=== PATIENT | female | born 1955 | race Caucasian/White ===

== ENCOUNTER 2019-11-29 05:43 | Observation (INO) | payer MEDICARE ==
[2019-11-29] MEDS ORDERED: MORPHINE SULFATE 4 MG/ML SYRINGE IV STA (06:21)
[2019-11-29] MEDS ORDERED: SODIUM CHLORIDE 0.9% 1,000 ML IV STA (06:21)
[2019-11-29 06:32] LABS: Basophils % (A) 0 %; Eosinophils # (A) 0.1 k/uL (0-0.7); Eosinophils % (A) 1 %; HCT 41.4 % (34.0-46.0); Lymphocytes % (A) 8 %; MCH 33.5 pg (25.0-35.0); MCHC 33.8 g/dL (31.0-37.0); MCV 99.1 fL (80.0-100.0); Mean Platelet Volume 8.4; Monocytes # (A) 0.7 k/uL (0-1.0); Monocytes % (A) 6 %; Neutrophils # (A) 11.6 k/uL (1.3-7.7); Neutrophils % (A) 86 %; Platelet Count 206 k/uL (150-450); RBC 4.18 m/uL (3.80-5.40); RDW 12.5 % (11.5-15.5); WBC 13.5 k/uL (3.8-10.6)
--- NOTE | 2019-11-29 06:43 | ED ---
General Adult HPI <Cassius Finch - Last Filed: 11/29/19 07:49> - General Source: patient, RN notes reviewed, old records reviewed Mode of arrival: ambulatory Limitations: no limitations <Johnny Covington - Last Filed: 11/29/19 07:54> - General Chief complaint: Abdominal Pain Stated complaint: back pain Time Seen by Provider: 11/29/19 06:01 - History of Present Illness Initial comments: 64-year-old female patient with no pertinent past well-nourished history presents to ED for evaluation of abdominal pain. Patient reports that this morning at approximately 11 AM. She began experiencing abdominal discomfort. This is mostly in her lower quadrant as well as periumbilical region. Patient reports that she has had some radiation to right posterior axillary line. Patient reports she has had a small amount of nausea without emesis. Denies any diarrhea. Denies any chest pain or shortness of breath. Denies any no change in urination. Denies any other complaints. Systemic: Pt denies fatigue, fever/chills, rash. Pt denies weakness, night sweats, weight loss. Neuro: Pt denies headache, visual disturbances, syncope or pre-syncope. HEENT: Pt denies ocular discharge or irritation, otalgia, rhinorrhea, pharyngitis or notable lymphadenopathy. Cardiopulmonary: Pt denies chest pain, SOB, heart palpitations, dyspnea on exertion. Abdominal/GI: Pt denies n/v/d. : Pt denies dysuria, burning w/ urination, frequency/urgency. Denies new onset urinary or bowel incontinence. MSK: Pt denies myalgia, loss of strength or function in extremities. Neuro: Pt denies new onset weakness, paresthesias. (Johnny Covington) - Related Data Allergies Allergy/AdvReac Type Severity Reaction Status Date / Time No Known Allergies Allergy Verified 11/29/19 05:52 Review of Systems ROS Other: All systems not noted in ROS Statement are negative. <Cassius Finch - Last Filed: 11/29/19 07:49> ROS Other: All systems not noted in ROS Statement are negative. <Johnny Covington - Last Filed: 11/29/19 07:54> ROS Statement: Those systems with pertinent positive or pertinent negative responses have been documented in the HPI. Past Medical History Past Medical History: No Reported History History of Any Multi-Drug Resistant Organisms: None Reported Past Surgical History: Orthopedic Surgery Additional Past Surgical History / Comment(s): Ovary removed Past Psychological History: No Psychological Hx Reported Smoking Status: Never smoker Past Alcohol Use History: Occasional Past Drug Use History: None Reported <Johnny Covington - Last Filed: 11/29/19 07:54> General Exam Limitations: no limitations <Johnny Covington - Last Filed: 11/29/19 07:54> - General Exam Comments Initial Comments: Constitutional: NAD, AOX3, Pt has pleasant affect. HEENT: NC/AT, trachea midline, neck supple, no lymphadenopathy. Posterior pharynx non erythematous, without exudates. External ears appear normal, without discharge. Mucous membranes moist. Eyes PERRLA, EOM intact. There is no scleral icterus. No pallor noted. Cardiopulmonary: RRR, no murmurs, rubs or gallops, no JVD noted. Lungs CTAB in anterior and posterior sanchez. No peripheral edema. Abdominal exam: Abdomen soft and non-distended. Abdomen has generalized moderate tenderness and right lower quadrant and left lower quadrant periumbilical region.. Bowel sounds active in LLQ. No hepatosplenomegaly. No ecchymosis. No CVA tenderness. Neuro: CN II-XII grossly intact. No nuchal rigidity. No raccon eyes, no núñez sign, no hemotympanum. No cervical spinal tenderness. MSK: No posterior calf tenderness bilaterally, homans sign negative bilaterally. Posterior tibialis and radial pulse +2 bilaterally. Sensation intact in upper and lower extremities. Full active ROM in upper and lower extremities, 5/5 s tregnth. (Johnny Covington) Course Vital Signs 11/29/19 11/29/19 05:48 06:51 Temperature 99.2 F 98.9 F Pulse Rate 83 77 Respiratory 18 18 Rate Blood Pressure 151/66 144/74 O2 Sat by Pulse 98 98 Oximetry Medical Decision Making - Lab Data Result diagrams: 11/29/19 06:15 11/29/19 06:15 <Cassius Finch - Last Filed: 11/29/19 07:49> - Lab Data Result diagrams: 11/29/19 06:15 11/29/19 06:15 - EKG Data -: EKG Interpreted by Me (and Dr. Finch ) <Johnny Covington - Last Filed: 11/29/19 07:54> - Medical Decision Making Patient reevaluated and reexamined by myself, Dr. Finch. I do agree with. Findings. This includes diagnostic interpretation and treatment plan. Patient is updated on results and plan. Case was discussed in detail with Dr. Shields, who will admit for or. Abdomen is soft with moderate right lower quadrant tenderness. Lab results and CT report reviewed. (Cassius Finch) 64-year-old female patient with no pertinent past well-nourished history presents to ED for evaluation of abdominal pain. Patient reports that this morning at approximately 11 AM. She began experiencing abdominal discomfort. This is mostly in her lower quadrant as well as periumbilical region. Patient reports that she has had some radiation to right posterior axillary line. Patient reports she has had a small amount of nausea without emesis. Denies any diarrhea. Denies any chest pain or shortness of breath. Denies any no change in urination. Denies any other complaints. Patient vital signs are stable, afebrile. Physical exam slight tenderness to abdomen right lower quadrant and left lower quadrant region. laboratory investigations reveal leukocytosis of 13.5.displayed nonspecific ST abnormality, does not appear ischemic. UA displayed +2 ketones, [address] abdomen and pelvis display evidence of acute appendicitis with fecalith present within the appendix. Also displayed mild cardiomegaly, mild hepatomegaly, probable cysts in both the liver and the kidneys. Degenerative changes in the spine. Patient initiated an Zosyn. Will be admitted for surgical evaluation. Case discussed with Dr. Finch. (Johnny Covington) - Lab Data Lab Results 11/29/19 11/29/19 11/29/19 Range/Units 06:15 06:15 06:15 WBC 13.5 H (3.8-10.6) k/uL RBC 4.18 (3.80-5.40) m/uL Hgb 14.0 (11.4-16.0) gm/dL Hct 41.4 (34.0-46.0) % MCV 99.1 (80.0-100.0) fL MCH 33.5 (25.0-35.0) pg MCHC 33.8 (31.0-37.0) g/dL RDW 12.5 (11.5-15.5) % Plt Count 206 (150-450) k/uL Neutrophils % 86 % Lymphocytes % 8 % Monocytes % 6 % Eosinophils % 1 % Basophils % 0 % Neutrophils # 11.6 H (1.3-7.7) k/uL Lymphocytes # 1.0 (1.0-4.8) k/uL Monocytes # 0.7 (0-1.0) k/uL Eosinophils # 0.1 (0-0.7) k/uL Basophils # 0.0 (0-0.2) k/uL Sodium 137 (137-145) mmol/L Potassium 3.9 (3.5-5.1) mmol/L Chloride 101 (98-107) mmol/L Carbon Dioxide 24 (22-30) mmol/L Anion Gap 12 mmol/L BUN 13 (7-17) mg/dL Creatinine 0.56 (0.52-1.04) mg/dL Est GFR (CKD-EPI)AfAm >90 (>60 ml/min/1.73 sqM) Est GFR (CKD-EPI)NonAf >90 (>60 ml/min/1.73 sqM) Glucose 125 H (74-99) mg/dL Plasma Lactic Acid Justyn 1.1 (0.7-2.0) mmol/L Calcium 9.6 (8.4-10.2) mg/dL Total Bilirubin 0.7 (0.2-1.3) mg/dL AST 20 (14-36) U/L ALT 15 (4-34) U/L Alkaline Phosphatase 49 (38-126) U/L Total Protein 7.5 (6.3-8.2) g/dL Albumin 4.6 (3.5-5.0) g/dL Lipase 71 (23-300) U/L Urine Color Urine Appearance (Clear) Urine pH (5.0-8.0) Ur Specific [place] (1.001-1.035) Urine Protein (Negative) Urine Glucose (UA) (Negative) Urine Ketones (Negative) Urine Blood (Negative) Urine Nitrite (Negative) Urine Bilirubin (Negative) Urine Urobilinogen (<2.0) mg/dL Ur Leukocyte Esterase (Negative) Urine RBC (0-5) /hpf Urine WBC (0-5) /hpf Urine Mucus (None) /hpf Urine Yeast (Budding) (None) /hpf 11/29/19 Range/Units 06:30 WBC (3.8-10.6) k/uL RBC (3.80-5.40) m/uL Hgb (11.4-16.0) gm/dL Hct (34.0-46.0) % MCV (80.0-100.0) fL MCH (25.0-35.0) pg MCHC (31.0-37.0) g/dL RDW (11.5-15.5) % Plt Count (150-450) k/uL Neutrophils % % Lymphocytes % % Monocytes % % Eosinophils % % Basophils % % Neutrophils # (1.3-7.7) k/uL Lymphocytes # (1.0-4.8) k/uL Monocytes # (0-1.0) k/uL Eosinophils # (0-0.7) k/uL Basophils # (0-0.2) k/uL Sodium (137-145) mmol/L Potassium (3.5-5.1) mmol/L Chloride (98-107) mmol/L Carbon Dioxide (22-30) mmol/L Anion Gap mmol/L BUN (7-17) mg/dL Creatinine (0.52-1.04) mg/dL Est GFR (CKD-EPI)AfAm (>60 ml/min/1.73 sqM) Est GFR (CKD-EPI)NonAf (>60 ml/min/1.73 sqM) Glucose (74-99) mg/dL Plasma Lactic Acid Justyn (0.7-2.0) mmol/L Calcium (8.4-10.2) mg/dL Total Bilirubin (0.2-1.3) mg/dL AST (14-36) U/L ALT (4-34) U/L Alkaline Phosphatase (38-126) U/L Total Protein (6.3-8.2) g/dL Albumin (3.5-5.0) g/dL Lipase (23-300) U/L Urine Color Yellow Urine Appearance Clear (Clear) Urine pH 5.5 (5.0-8.0) Ur Specific [place] 1.024 (1.001-1.035) Urine Protein 1+ H (Negative) Urine Glucose (UA) Negative (Negative) Urine Ketones 2+ H (Negative) Urine Blood Large H (Negative) Urine Nitrite Negative (Negative) Urine Bilirubin Negative (Negative) Urine Urobilinogen <2.0 (<2.0) mg/dL Ur Leukocyte Esterase Negative (Negative) Urine RBC 50 H (0-5) /hpf Urine WBC 2 (0-5) /hpf Urine Mucus Few H (None) /hpf Urine Yeast (Budding) Occasional H (None) /hpf - EKG Data EKG Comments: Ventricular rate 78, HI interval 140, QRS 72, QT/QTc 48/465. Normal sinus rhythm, nonspecific ST abnormality, no ST elevations. (Johnny Covington) Disposition <Cassius Finch - Last Filed: 11/29/19 07:49> Is patient prescribed a controlled substance at d/c from ED?: No <Johnny Covington - Last Filed: 11/29/19 07:54> Clinical Impression: Acute appendicitis Disposition: ADMITTED IP TO THIS HOSP Condition: Serious Referrals: Nonstaff,Physician [Primary Care Provider] - 1-2 days
[2019-11-29 06:46] LABS: ALT 15 U/L (4-34); AST 20 U/L (14-36); African American GFR (CKD) >90 (>60 ml/min/1.73 sqM); Albumin 4.6 g/dL (3.5-5.0); Alkaline Phosphatase 49 U/L (38-126); Anion Gap 12 mmol/L; Blood Urea Nitrogen 13 mg/dL (7-17); Calcium 9.6 mg/dL (8.4-10.2); Carbon Dioxide 24 mmol/L (22-30); Chloride 101 mmol/L (98-107); Glucose 125 mg/dL (74-99); Non-African American GFR(CKD) >90 (>60 ml/min/1.73 sqM); Potassium 3.9 mmol/L (3.5-5.1); Sodium 137 mmol/L (137-145); Total Bilirubin 0.7 mg/dL (0.2-1.3); Total Protein 7.5 g/dL (6.3-8.2)
[2019-11-29 06:48] LABS: Appearance,Urine Clear (Clear); Bilirubin,Urine Negative (Negative); Blood,Urine Large (Negative); Budding Yeast,Urine Occasional /hpf; Color,Urine Yellow; Glucose,Urine (UA) Negative (Negative); Ketones,Urine 2+ (Negative); Leukocyte Esterase,Urine Negative (Negative); Mucus,Urine Few /hpf; Nitrite,Urine Negative (Negative); PH, Urine 5.5 (5.0-8.0); Protein,Urine 1+ (Negative); RBC,Urine 50 /hpf (0-5); Specific Gravity,Urine 1.024 (1.001-1.035); Urobilinogen,Urine <2.0 mg/dL (<2.0); WBC,Urine 2 /hpf (0-5)
--- NOTE | 2019-11-29 07:36 | CT ---
EXAMINATION TYPE: CT abdomen pelvis w con DATE OF EXAM: 11/29/2019 REFERENCE: NONE HISTORY: RLQ abdominal pain, appendicitis suspected HISTORY: Back pain, RLQ abdominal pain, Appendicitis suspected CT DLP: 505.1 mGy Automated exposure control for dose reduction was used. TECHNIQUE: Helical acquisition through the abdomen and pelvis was obtained following the oral ingesti on of without Oral Contrast and following intravenous administration of 100 ml mL of Isovue 300. The data was reformatted in axial, coronal and sagittal projections. FINDINGS: Visualized portions of the lungs are clear. There is no pleural or pericardial fluid. The heart is mildly enlarged. Within the abdomen, the liver is mildly prominent measuring 19 cm. There are several low attenuating lesions within the liver which do not demonstrate enhancement on delayed images. These likely represe nt cysts. This could BE confirmed with ultrasound. The spleen and gallbladder are normal. Both adrenal glands are normal. The pancreas is unremarkable. There are small, simple appearing cysts in both kidneys. There is no significant retroperitoneal, iliac or inguinal adenopathy. The uterus is retroverted. There is follicular change in the right ovary. The left ovary is not clear ly visualized. The bladder is not distended. The colon is largely collapsed. There is inflammatory change adjacent to the cecum. There is a fecali th within the appendix. The appendix is markedly dilated measuring 13.5 mm. No definite free intraper itoneal air is seen. There is free fluid within the pelvis. Small bowel loops are of normal caliber. There is degenerative disc disease, facet arthropathy and hypertrophic spondylosis within the spine.. IMPRESSION: 1. EVIDENCE OF ACUTE APPENDICITIS WITH A FECALITH PRESENT WITHIN THE APPENDIX. 2. MILD CARDIOMEGALY. 3. MILD HEPATOMEGALY. 4. PROBABLE CYSTS IN BOTH THE LIVER AND KIDNEYS. THIS COULD BE CONFIRMED WITH ULTRASOUND. 5. DEGENERATIVE CHANGES WITHIN THE SPINE.
[2019-11-29] MEDS ORDERED: PIPERACILLIN-TAZOBACTAM 3.375 GM in SODIUM CHLORIDE 0.9% 100 ML IVPB STA (07:40)
[2019-11-29] MEDS ORDERED: MORPHINE SULFATE 4 MG/ML SYRINGE IV PRN (07:47)
[2019-11-29] MEDS ORDERED: NALOXONE 0.4 MG/ML 1 ML VIAL IV PRN (07:47)
[2019-11-29] MEDS ORDERED: HYDROmorphone 0.5 MG/0.5 ML SYRINGE IVP STA (07:50)
[2019-11-29] MEDS ORDERED: SODIUM CHLORIDE 0.9% 1,000 ML IV SCH (08:00)
[2019-11-29] MEDS: HEPARIN SODIUM,PORCINE 5,000 UNIT/ML 1 ML VIAL SQ SCH ×2 (11:08→12:14)
--- NOTE | 2019-11-29 12:47 | P.GSHP ---
History of Present Illness H&P Date: 11/29/19 CHIEF COMPLAINT: Right lower quadrant abdominal pain with appendicitis less than 1 day. HISTORY OF PRESENT ILLNESS: The patient is a previously healthy 64-year-old male who presents with less than 1 day history of periumbilical with right lower quadrant abdominal pain that started yesterday afternoon. She denies any previous episodes. She is active. She reports having multiple bowel movements. No blood in stools. No reports of prior abdominal pain. She states the intensity of the pain is moderate like gas pain. She presented with over 13,[address] abdomen and pelvis consistent with dilated appendix suspicious for appendicitis hence general surgery admission. Since admission, She reports abdominal pain is steady but worse with movement. PAST MEDICAL HISTORY: Denies PAST SURGICAL HISTORY: Denies CURRENT MEDICATIONS: Denies ALLERGIES: Codeine SOCIAL HISTORY: Non-tobacco user. FAMILY HISTORY: Denies Crohns disease and ulcerative colitis. REVIEW OF ORGAN SYSTEMS: CONSTITUTIONAL: Denies any fever or chills. HEENT: Denies any trouble with vision, hearing or nosebleeds. No difficulty swallowing. LYMPHATIC: The patient denies any lumps and bumps around the neck. ENDOCRINE: Denies any thyroid disorders. Denies any blood sugar glucose intolerance. RESPIRATORY: Denies shortness of breath including chronic cough. CARDIOVASCULAR: Denies history of chest pain with exertion. GASTROINTESTINAL: Denies regurgitation of bile at night as well as intermittent nausea. No blood in stools. Due for colonoscopy next year GENITOURINARY: Denies any blood in urine or increased urinary frequency. MUSCULOSKELETAL: Has current joint arthritis. NEUROLOGIC: Denies any numbness or tingling along the distal extremities. No seizure disorders or headaches. PSYCHIATRIC: Denies any depression or suicidal ideation. HEMATOLOGIC: Denies any abnormal bleeding or bruising. GENERAL MEDICAL CARE: The patient sees primary care physician regularly. PHYSICAL EXAMINATION: Vital signs: Reviewed GENERAL: Well developed and in no acute distress. Appears younger than stated age HEENT: No sclera icterus. Extraocular movements grossly intact. Moist buccal mucosa. Head is atraumatic, normocephalic. Hears conversational speech. No nasal drainage. NECK: Supple without lymphadenopathy. No JV distention. CHEST: Non-labored respirations and equal bilateral excursions. CARDIOVASCULAR: Regular rate and rhythm. Palpable 2+ radial pulses. ABDOMEN: Soft, tender at the right lower quadrant. No peritonitis. MUSCULOSKELETAL: No clubbing, cyanosis or edema. NEUROLOGIC: No focal or lateralizing signs. PSYCH: Appropriate affect. Alert and oriented to person, place and time. SKIN: Well perfused. Good skin turgor. LABS: WBC over 13,000 EKG: Reviewed and borderline STUDIES: CT of the abdomen and pelvis independently reviewed with dilated appendix without perforation or free fluid. This my personal interpretation ASSESSMENT: 1. Right lower quadrant pain. 2. Appendicitis. 3. Hypertensive heart disease PLAN: 1. I have discussed benefits and risks of robotic laparoscopic appendectomy. 2. Antibiotics, zosyn 3. DVT prophylaxis 4. GI prophylaxis 5. Patient in intermediate risk for perioperative complications with history of hypertension Past Medical History Past Medical History: No Reported History History of Any Multi-Drug Resistant Organisms: None Reported Past Surgical History: Orthopedic Surgery Additional Past Surgical History / Comment(s): Ovary removed Past Anesthesia/Blood Transfusion Reactions: No Reported Reaction Past Psychological History: No Psychological Hx Reported Smoking Status: Never smoker Past Alcohol Use History: Occasional Past Drug Use History: None Reported - Past Family History Mother Family Medical History: COPD, Rheumatoid Arthritis (RA) Medications and Allergies Home Medications Medication Instructions Recorded Confirmed Type Ascorbic Acid [Vitamin C] 500 mg PO DAILY 11/29/19 11/29/19 History Cholecalciferol [Vitamin D3 (25 2,000 unit PO DAILY 11/29/19 11/29/19 History Mcg = 1000 Iu)] Glucosam/Ryan-Msm1/C/Connor/Bosw 1 tab PO DAILY 11/29/19 11/29/19 History [Glucosamine-Chondroitin Tablet] [place]-3 Fatty Acids/Fish Oil [Fish 1 cap PO DAILY 11/29/19 11/29/19 History Oil 1,000 mg Softgel] Vitamin E 400 unit PO DAILY 11/29/19 11/29/19 History Allergies Allergy/AdvReac Type Severity Reaction Status Date / Time No Known Allergies Allergy Verified 11/29/19 09:15 Surgical - Exam Vital Signs Temp Pulse Resp BP Pulse Ox 99.2 F 83 18 151/66 98 11/29/19 05:48 11/29/19 05:48 11/29/19 05:48 11/29/19 05:48 11/29/19 05:48 Results - Labs 11/29/19 06:15 11/29/19 06:15 Abnormal Lab Results - Last 24 Hours (Table) 11/29/19 11/29/19 11/29/19 Range/Units 06:15 06:15 06:30 WBC 13.5 H (3.8-10.6) k/uL Neutrophils # 11.6 H (1.3-7.7) k/uL Glucose 125 H (74-99) mg/dL Urine Protein 1+ H (Negative) Urine Ketones 2+ H (Negative) Urine Blood Large H (Negative) Urine RBC 50 H (0-5) /hpf Urine Mucus Few H (None) /hpf Urine Yeast (Budding) Occasional H (None) /hpf Diabetes panel 11/29/19 Range/Units 06:15 Sodium 137 (137-145) mmol/L Potassium 3.9 (3.5-5.1) mmol/L Chloride 101 (98-107) mmol/L Carbon Dioxide 24 (22-30) mmol/L BUN 13 (7-17) mg/dL Creatinine 0.56 (0.52-1.04) mg/dL Glucose 125 H (74-99) mg/dL Calcium 9.6 (8.4-10.2) mg/dL AST 20 (14-36) U/L ALT 15 (4-34) U/L Alkaline Phosphatase 49 (38-126) U/L Total Protein 7.5 (6.3-8.2) g/dL Albumin 4.6 (3.5-5.0) g/dL Calcium panel 11/29/19 Range/Units 06:15 Calcium 9.6 (8.4-10.2) mg/dL Albumin 4.6 (3.5-5.0) g/dL Pituitary panel 11/29/19 Range/Units 06:15 Sodium 137 (137-145) mmol/L Potassium 3.9 (3.5-5.1) mmol/L Chloride 101 (98-107) mmol/L Carbon Dioxide 24 (22-30) mmol/L BUN 13 (7-17) mg/dL Creatinine 0.56 (0.52-1.04) mg/dL Glucose 125 H (74-99) mg/dL Calcium 9.6 (8.4-10.2) mg/dL Adrenal panel 11/29/19 Range/Units 06:15 Sodium 137 (137-145) mmol/L Potassium 3.9 (3.5-5.1) mmol/L Chloride 101 (98-107) mmol/L Carbon Dioxide 24 (22-30) mmol/L BUN 13 (7-17) mg/dL Creatinine 0.56 (0.52-1.04) mg/dL Glucose 125 H (74-99) mg/dL Calcium 9.6 (8.4-10.2) mg/dL Total Bilirubin 0.7 (0.2-1.3) mg/dL AST 20 (14-36) U/L ALT 15 (4-34) U/L Alkaline Phosphatase 49 (38-126) U/L Total Protein 7.5 (6.3-8.2) g/dL Albumin 4.6 (3.5-5.0) g/dL Assessment and Plan (1) Hypertensive cardiovascular disease Current Visit: Yes Status: Acute Code(s): I11.9 - HYPERTENSIVE HEART DISEASE WITHOUT HEART FAILURE SNOMED Code(s): 50836386 (2) Acute appendicitis Current Visit: Yes Status: Acute Code(s): K35.80 - UNSPECIFIED ACUTE APPENDICITIS SNOMED Code(s): 59237763 (3) Leukocytosis Current Visit: Yes Status: Acute Code(s): D72.829 - ELEVATED WHITE BLOOD CELL COUNT, UNSPECIFIED SNOMED Code(s): 390342955
[2019-11-29] MEDS ORDERED: LIDOCAINE 1% INJ 10MG/ML (20 ML MDV) ONE (15:10)
[2019-11-29] MEDS ORDERED: PHENYLEPHRINE-0.9% NACL SYG 1 MG/10 ML SYRINGE ONE (15:10)
[2019-11-29] MEDS ORDERED: SUCCINYLCHOLINE CHLORIDE 100 MG/5 ML SYR IV ONE (15:10)
[2019-11-29] MEDS ORDERED: PROPOFOL 10 MG/ML 20 ML VIAL IV ONE (15:10)
[2019-11-29] MEDS ORDERED: NEOSTIGMINE 1 MG/ML 10 ML VIAL ONE (15:10)
[2019-11-29] MEDS ORDERED: fentaNYL (PF) 50 MCG/ML 2 ML AMP ONE (15:10)
[2019-11-29] MEDS ORDERED: ROCURONIUM BROMIDE 10 MG/ML 5 ML VIAL IV ONE (15:10)
[2019-11-29] MEDS ORDERED: IV FLUID CONTINUATION 600 ML IV ONE (15:10)
[2019-11-29] MEDS ORDERED: MIDAZOLAM 2 MG/2 ML VIAL ONE (15:10)
[2019-11-29] MEDS ORDERED: GLYCOPYRROLATE 0.2 MG/ML 2 ML VIAL ONE (15:10)
[2019-11-29] MEDS ORDERED: BUPIVACAIN-EPI 0.25%-1:200,000 30 ML VIAL SQ ONE ×2 (15:41→15:44)
[2019-11-29] MEDS ORDERED: PIPERACILLIN-TAZOBACTAM 3.375 GM in SODIUM CHLORIDE 0.9% 100 ML IVPB SCH (16:00)
[2019-11-29] MEDS ORDERED: LACTATED RINGERS 1,000 ML IV ONE (16:16)
--- NOTE | 2019-11-29 16:29 | P.OP ---
Date of Procedure: 11/29/19 Description of Procedure: SURGEON: RADHA ZAVALA MD Preoperative Diagnosis: 1. Right lower quadrant abdominal pain 2. Acute appendicitis. 3. Leukocytosis 4. Hypertensive heart disease Postoperative Diagnosis: 1. Right lower quadrant abdominal pain 2. Acute appendicitis. 3. Leukocytosis 4. Hypertensive heart disease 5. Abdominal ascites Procedure(s) Performed: 1. Robotic-assisted daVinci Xi laparoscopic appendectomy Anesthesia: GETA, local Surgeon: Radha Zavala Estimated Blood Loss (ml): 5 Pathology: other (appendix) Condition: stable Disposition: floor Operative Findings: 1. Acute appendicitis without rupture with periappendicitis. 2. Terminal ileum unremarkable 3. Cecum unremarkable 4. No bilateral inguinal hernias 5. Ascites within the pelvis aspirated INDICATIONS: The patient is a 64-year-old female who presents with acute appendicitis. Benefits and risks, including infection, open surgery, and bleeding for additional surgery was discussed at length. Informed consent was obtained. All questions of the patient and family were answered. DESCRIPTION: The patient was transferred to the operating room and placed in supine position. The patient had previously voided. The abdomen was then prepped and draped in standard sterile fashion as Ioban was placed along the abdomen to minimize any contamination of skin floor. After a timeout protocol was performed, attention was then brought to the left upper quadrant whereby a 0 degree 5 mm laparoscopic trocar entry was performed. The abdominal cavity was entered and insufflated to 15 mmHg pressure, which was tolerated well. Diagnostic laparoscopy demonstrated no injury to bowel, viscera or mesentery. Next a robotic 12-mm trocar was placed along the left upper quadrant, 15-cm lateral to the midline. A 8 mm port was placed along the right upper quadrant and another 8-mm port along the epigastrium. Ports were placed 10 cm apart from each other including 15-20 cm away from the target anatomy of the right pelvis. The patient was then placed in Trendelenburg position, at least 10 down and right side up at least 6. The robotic da Bessy XI system was primed and docked from the left side of the patient. Using atraumatic graspers and vessel sealer, the robotic system was docked and primed as described. Instruments were interchanged by the special education assistant including graspers, robotic stapler and vessel sealer. Next, attention was brought to identify the cecum. A systematic view within the abdominal cavity was started with the small bowel which was unremarkable. The base of the cecum was unremarkable. No inguinal hernias were identified. The body of the appendix was moderately dilated with moderate periappendicitis. No perforation was identified. The appendix was deeply extended into the right lateral pelvis. The mid body of the appendix was dilated and inflamed with periappendicitis and necrosis. The appendix was dissected free from surrounding tissues including small bowel. A 45 mm blue robotic staple load was fired along the base of the appendix. The staple line was hemostatic. Hemostasis was checked prior to undocking the robot. Abdominal ascites was aspirated from the pelvis including lysing interloop adhesions of the small bowel of the pelvis. The robot was undocked. I re-scrubbed into the case. The specimen was removed from the abdominal cavity with an Endo Catch bag through the 12 mm trocar at the left lower quadrant. Star Barclay 0 Vicryl was used to close the 12 mm trocar site. All instruments and pneumoperitoneum were evacuated from the abdominal cavity using suction. Local anesthetic was infiltrated to all wounds for postop analgesia. All incisions were also cleansed with diluted hydrogen peroxide. The incisions were closed with 4-0 Monocryl. Exofin glue was applied to the rest of the skin incisions. The patient had tolerated the procedure well. The patient was extubated successfully. The patient was transferred to the postanesthesia care unit in stable condition.
[2019-11-29] MEDS ORDERED: ONDANSETRON 4 MG/2 ML VIAL IVP PRN (16:31)
[2019-11-29 16:47] VITALS: RESP 16
[2019-11-29] MEDS ORDERED: HYDROmorphone 0.5 MG/0.5 ML SYRINGE IVP ONE (16:51)
[2019-11-29] MEDS: KETOROLAC 30 MG/ML 1 ML VIAL IVP SCH ×2 (16:52→17:45)
[2019-11-29] MEDS ORDERED: ACETAMINOPHEN TAB 325 MG TAB PO SCH (18:00)
[2019-11-29 18:54] VITALS: TEMP 99.1
[2019-11-29 18:55] VITALS: BP 104/53; PULSE 67
--- NOTE | 2019-11-30 14:24 | P.PN ---
Progress Note - Text Progress Note Date: 11/30/19 Patient contacted at home after discharge from uncomplicated laparoscopic appendectomy. She is doing well. All questions addressed including recovery. Patient to follow-up in the office in 48-72 hours.
--- NOTE | 2019-11-30 14:25 | P.DS ---
Providers Date of admission: 11/29/19 07:58 Expected date of discharge: 11/29/19 Attending physician: Radha Zavala Primary care physician: Nonstaff - Discharge Diagnosis(es) (1) Hypertensive cardiovascular disease Status: Acute (2) Acute appendicitis Status: Acute (3) Leukocytosis Status: Acute Hospital Course: Patient is a 64-year-old female presented with acute appendicitis confirmed per computed tomography scan. She underwent uncomplicated laparoscopic appendectomy. Prior to surgery potential discharge was reviewed pending intraoperative findings. No evidence of rupture was found. Prior to discharge, patient was tolerating diet and voiding spontaneously. Discharge instructions were also reviewed. Patient Condition at Discharge: Stable Plan - Discharge Summary Discharge Rx Participant: No New Discharge Prescriptions: New Ibuprofen [Motrin] 600 mg PO Q8HR PRN #20 tab PRN Reason: Pain Acetaminophen Tab [Tylenol Tab] 500 mg PO Q6H PRN #30 tablet PRN Reason: Pain Continue Glucosam/Ryan-Msm1/C/Connor/Bosw [Glucosamine-Chondroitin Tablet] 1 tab PO DAILY Ascorbic Acid [Vitamin C] 500 mg PO DAILY Discontinued Vitamin E 400 unit PO DAILY Cholecalciferol [Vitamin D3 (25 Mcg = 1000 Iu)] 2,000 unit PO DAILY Ralston-3 Fatty Acids/Fish Oil [Fish Oil 1,000 mg Softgel] 1 cap PO DAILY Discharge Medication List Acetaminophen Tab [Tylenol Tab] 500 mg PO Q6H PRN #30 tablet 11/29/19 [Rx] Ascorbic Acid [Vitamin C] 500 mg PO DAILY 11/29/19 [History] Glucosam/Ryan-Msm1/C/Connor/Bosw [Glucosamine-Chondroitin Tablet] 1 tab PO DAILY 11/29/19 [History] Ibuprofen [Motrin] 600 mg PO Q8HR PRN #20 tab 11/29/19 [Rx] Follow up Appointment(s)/Referral(s): Radha Zavala MD [STAFF PHYSICIAN] - 12/02/19 (Please call Sunday to confirm time) Nonstaff,Physician [Primary Care Provider] - 1-2 days Patient Instructions/Handouts: Acetaminophen (By mouth), Ibuprofen (By mouth), Laparoscopic Appendectomy (DC) Activity/Diet/Wound Care/Special Instructions: No lifting over 10 pounds in 2 weeks until December 12. May shower. No bath tub soaks for two weeks until December 12. Diet as tolerated. No driving while on narcotics. Use Tylenol and ibuprofen or Aleve scheduled for the next 24-48 hours for best pain relief. Use ice along incisions for the today to prevent swelling. Discharge Disposition: HOME SELF-CARE
== END 2019-11-29 20:15 | disposition home or self-care (01) ==
LOC: EC 05:43 → 5NMEDONC 07:58
PROVIDERS: ADMIT Surgery Plastic and Reconstructive Surgery; ATTEND Surgery Plastic and Reconstructive Surgery
DX: K35.891 Other acute appendicitis without perforation, with gangrene (principal); I11.9 Hypertensive heart disease without heart failure; R18.8 Other ascites; Z82.5 Family history of asthma and other chronic lower respiratory diseases; Z82.61 Family history of arthritis; Z79.899 Other long term (current) drug therapy; Z03.818 Encounter for observation for suspected exposure to other biological agents ruled out
CPT/HCPCS: 44970; 96376; 96374; 96375; 99285; 36415; 93005; 88304; 80053; 83605; 83690; 85025; 81001; 87040; 87635; 74177; G0378; J2543; J2250; J2270; J1644; J2710; J0690; J2405; J2001; J3010; J1885; J2370; J0330; J2704; J1170; Q9967

== ENCOUNTER → 2020-11-19 | Outpatient (CLI) | payer MEDICARE ==
--- NOTE | 2020-11-21 18:50 | US ---
The EXAMINATION TYPE: US gallbladder DATE OF EXAM: 11/19/2020 COMPARISON: NONE CLINICAL HISTORY: 65-year-old female K81.0 Chronic R10.11 Right upper quadrant pain. TECHNIQUE: Multiple sonographic images of the right upper quadrant are obtained. FINDINGS: EXAM MEASUREMENTS: Liver Length: 13.8 cm Gallbladder Wall: 0.2 cm CBD: 0.4 cm Right Kidney: 10.5 x 3.3 x 4.6 cm Pancreas: Most of the pancreas is visualized and shows no gross abnormality. Liver: A few scattered cysts are demonstrated, the largest measuring 3.1 x 1.5 x 2.1cm Gallbladder: no evidence of stones Evidence for sonographic Gonzales's sign: no CBD: appears wnl Right Kidney: no evidence of hydronephrosis IMPRESSION: A few scattered benign hepatic cysts measuring up to 3.1 cm. No gallstones or biliary ductal dilatati on.
--- NOTE | 2020-11-21 19:12 | NM ---
EXAMINATION TYPE: NM hepatobiliary w CCK DATE OF EXAM: 11/19/2020 COMPARISON: Ultrasound same day HISTORY: 65-year-old female K81.0 Chronic R10.11 Right upper quadrant pain TECHNIQUE: After the intravenous administration of 4.8 mCi Tc 99m Mebrofenin hepatobiliary scintigrap hy is performed. Immediate images post injection. FINDINGS: There is satisfactory initial accumulation of tracer by the liver. The gallbladder is visualized wit hin 16 minutes. The small bowel activity is noted within 30 minutes. At one hour CCK was administer ed, patient was injected with 1.0 mcg of Kinevac, and gallbladder ejection fraction is calculated at 50 %, in the normal range. Therefore there is no scintigraphic evidence of cystic or common bile monie t obstruction to suggest acute cholecystitis or gallbladder dyskinesia. IMPRESSION: No scintigraphic evidence for acute/chronic cholecystitis or biliary dyskinesia.
== END | disposition home or self-care (01) ==
LOC: RADUSWWP 12:15
PROVIDERS: ATTEND Surgery Plastic and Reconstructive Surgery
DX: K76.89 Other specified diseases of liver (principal); R10.11 Right upper quadrant pain
CPT/HCPCS: 76705; 78227; A9537; J2805

== ENCOUNTER 2023-11-25 17:40 | Inpatient (IN) | payer MEDICARE ==
[2023-11-25] MEDS: HYDROmorphone 0.5 MG/0.5 ML SYRINGE IVP STA (17:51)
[2023-11-25 17:55] LABS: Basophils % (A) 0 %; Eosinophils # (A) 0.2 k/uL (0-0.7); Eosinophils % (A) 2 %; HCT 37.5 % (34.0-46.0); HGB 12.8 gm/dL (11.4-16.0); Lymphocytes # (A) 2.7 k/uL (1.0-4.8); Lymphocytes % (A) 36 %; MCH 33.9 pg (25.0-35.0); MCHC 34.3 g/dL (31.0-37.0); Mean Platelet Volume 8.5; Monocytes # (A) 0.3 k/uL (0-1.0); Monocytes % (A) 4 %; Neutrophils # (A) 4.2 k/uL (1.3-7.7); Neutrophils % (A) 56 %; Platelet Count 200 k/uL (150-450); RBC 3.79 m/uL (3.80-5.40); RDW 12.5 % (11.5-15.5); WBC 7.4 k/uL (3.8-10.6)
[2023-11-25] MEDS: SODIUM CHLORIDE 0.9% 1,000 ML IV SCH (17:55)
[2023-11-25] MEDS: SODIUM CHLORIDE 0.9% 500 ML 500 ML IV ONE (17:55)
[2023-11-25 18:10] LABS: ALT 17 U/L (4-34); AST 24 U/L (14-36); African American GFR (CKD) >90 (>60 ml/min/1.73 sqM); Albumin 4.6 g/dL (3.5-5.0); Alkaline Phosphatase 59 U/L (38-126); Anion Gap 8 mmol/L; Blood Urea Nitrogen 21 mg/dL (7-17); Calcium 9.4 mg/dL (8.4-10.2); Carbon Dioxide 22 mmol/L (22-30); Chloride 109 mmol/L (98-107); Glucose 98 mg/dL (74-99); Magnesium 1.9 mg/dL (1.6-2.3); Non-African American GFR(CKD) >90 (>60 ml/min/1.73 sqM); Potassium 3.9 mmol/L (3.5-5.1); Sodium 139 mmol/L (137-145); Total Bilirubin 0.5 mg/dL (0.2-1.3); Total Protein 7.5 g/dL (6.3-8.2)
--- NOTE | 2023-11-25 18:14 | ED ---
General Adult HPI - General Chief complaint: Fall Stated complaint: Fall Time Seen by Provider: 11/25/23 17:43 Source: patient, EMS, RN notes reviewed, old records reviewed Mode of arrival: EMS Limitations: no limitations - History of Present Illness Initial comments: 68-year-old female slipped on water in her kitchen landing onto her right hip with severe pain. Patient was transported by paramedics with shortening and rotation of the right lower extremity, suspected hip fracture. Patient denies head or neck trauma. Denies anticoagulation. She is otherwise healthy, takes no daily medications. No chest or abdominal pain. No other extremity injury. - Related Data Home Medications Medication Instructions Recorded Confirmed Ascorbic Acid [Vitamin C] 500 mg PO DAILY 11/29/19 11/25/23 Glucosam/Ryan-Msm1/C/Connor/Bosw 1 tab PO DAILY 11/29/19 11/25/23 [Glucosamine-Chondroitin Tablet] Cholecalciferol [Vitamin D3 (25 25 mcg PO DAILY 11/25/23 11/25/23 Mcg = 1000 Iu)] Estradiol Cream [Estrace Cream 1 gm VAGINAL Q3D PRN 11/25/23 11/25/23 0.01%] Ezetimibe [Zetia] 10 mg PO BURGESS 11/25/23 11/25/23 Multivitamins, Thera [Multivitamin 1 tab PO DAILY 11/25/23 11/25/23 (formulary)] Vitamin E (Dl,Tocopheryl Acet) 400 unit PO DAILY 11/25/23 11/25/23 [Vitamin E (400 Iu = 180 mg)] Allergies Allergy/AdvReac Type Severity Reaction Status Date / Time No Known Allergies Allergy Verified 11/25/23 19:14 Review of Systems ROS Statement: Those systems with pertinent positive or pertinent negative responses have been documented in the HPI. ROS Other: All systems not noted in ROS Statement are negative. Past Medical History Past Medical History: No Reported History History of Any Multi-Drug Resistant Organisms: None Reported Past Surgical History: Orthopedic Surgery Additional Past Surgical History / Comment(s): Ovary removed Past Anesthesia/Blood Transfusion Reactions: No Reported Reaction Past Psychological History: No Psychological Hx Reported Smoking Status: Never smoker Past Alcohol Use History: Occasional Past Drug Use History: None Reported - Past Family History Mother Family Medical History: COPD, Rheumatoid Arthritis (RA) General Exam Limitations: no limitations General appearance: alert, in no apparent distress Head exam: Present: atraumatic, normocephalic Eye exam: Present: normal appearance, PERRL Neck exam: Present: normal inspection. Absent: tenderness, meningismus Respiratory exam: Present: normal lung sounds bilaterally. Absent: respiratory distress, wheezes Cardiovascular Exam: Present: regular rate, normal rhythm GI/Abdominal exam: Present: soft. Absent: distended, tenderness Course Vital Signs 11/25/23 11/25/23 11/25/23 17:42 18:44 19:16 Temperature 98 F Pulse Rate 72 75 64 Respiratory 20 18 18 Rate Blood Pressure 122/77 111/52 O2 Sat by Pulse 100 96 97 Oximetry 11/25/23 11/25/23 20:00 21:00 Temperature Pulse Rate 68 56 L Respiratory 16 14 Rate Blood Pressure 111/52 110/60 O2 Sat by Pulse 98 98 Oximetry Medical Decision Making - Medical Decision Making Was pt. sent in by a medical professional or institution (, PA, [employer], urgent care, hospital, or group home...) When possible be specific @ -No Did you speak to anyone other than the patient for history (EMS, parent, family, police, friend...)? What history was obtained from this source @ -No Did you review nursing and triage notes (agree or disagree)? Why? @ -I reviewed and agree with nursing and triage notes Were old charts reviewed (outside hosp., previous admission, EMS record, old EKG, old radiological studies, urgent care reports/EKG's, group home records)? Report findings @ -No old charts were reviewed Differential Musculoskeletal Muscular strain, contusion, ligament sprain, fracture, arthritis, septic arthritis, bursitis, cellulitis, muscle spasm, nerve compression, DVT, arterial occlusion, herpes zoster, electrolyte abnormality, tumor.... This is not meant to be in all inclusive list EKG interpreted by me (3pts min.). @ -EKG: Sinus rhythm rate of 66 RI interval 170, QRS duration 88, QTc [address] segment elevation. X-rays interpreted by me (1pt min.). @X-ray of the right hip showing intertrochanteric fracture. CT interpreted by me (1pt min.). @ -None done U/S interpreted by me (1pt. min.). @ -None done What testing was considered but not performed or refused? (CT, X-rays, U/S, labs)? Why? @ -None What meds were considered but not given or refused? Why? @ -None Did you discuss the management of the patient with other professionals (professionals i.e. , PA, [employer], lab, RT, psych nurse, community mental health social worker, golf course designer, teacher, light armored reconnaissance officer, case mgr)? Give summary @Case discussed with Dr. Lenz who will admit, internal medicine placed on consult. Was smoking cessation discussed for >3mins.? @ -No Was critical care preformed (if so, how long)? @ -No Were there social determinants of health that impacted care today? How? (Homelessness, low income, unemployed, alcoholism, drug addiction, transportation, low edu. Level, literacy, decrease access to med. care, group home, rehab)? @ -No Was there de-escalation of care discussed even if they declined (Discuss DNR or withdrawal of care, Hospice)? DNR status @ -No What co-morbidities impacted this encounter? (DM, HTN, Smoking, COPD, CAD, Cancer, CVA, ARF, Chemo, Hep., AIDS, mental health diagnosis, sleep apnea, morbid obesity)? @ -None Was patient admitted / discharged? Hospital course, mention meds given and route, prescriptions, significant lab abnormalities, going to OR and other pertinent info. @68-year-old female with mechanical fall right hip pain, x-ray shows intertrochanteric fracture of the right hip. Case discussed with orthopedics who will admit. Internal medicine placed on consult for comanagement and surgical clearance. Undiagnosed new problem with uncertain prognosis? @ -No Drug Therapy requiring intensive monitoring for toxicity (Heparin, Nitro, Insulin, Cardizem)? @ -No Were any procedures done? @ -No Diagnosis/symptom? @ -Right intertrochanteric fracture Acute, or Chronic, or Acute on Chronic? @Acute Uncomplicated (without systemic symptoms) or Complicated (systemic symptoms)? @ -Default Side effects of treatment? @ -No Exacerbation, Progression, or Severe Exacerbation? @ -No Poses a threat to life or bodily function? How? (Chest pain, [place], [place], pneumonia, PE, COPD, DKA, ARF, appy, cholecystitis, CVA, Diverticulitis, Homicidal, Suicidal, threat to staff... and all critical care pts) @ -[Low risk at this time - Lab Data Result diagrams: 11/25/23 17:47 11/25/23 17:47 Lab Results 11/25/23 11/25/23 11/25/23 Range/Units 17:47 17:47 17:47 WBC 7.4 (3.8-10.6) k/uL RBC 3.79 L (3.80-5.40) m/uL Hgb 12.8 (11.4-16.0) gm/dL Hct 37.5 (34.0-46.0) % MCV 99.0 (80.0-100.0) fL MCH 33.9 (25.0-35.0) pg MCHC 34.3 (31.0-37.0) g/dL RDW 12.5 (11.5-15.5) % Plt Count 200 (150-450) k/uL MPV 8.5 Neutrophils % 56 % Lymphocytes % 36 % Monocytes % 4 % Eosinophils % 2 % Basophils % 0 % Neutrophils # 4.2 (1.3-7.7) k/uL Lymphocytes # 2.7 (1.0-4.8) k/uL Monocytes # 0.3 (0-1.0) k/uL Eosinophils # 0.2 (0-0.7) k/uL Basophils # 0.0 (0-0.2) k/uL PT 10.5 (10.0-12.5) sec INR 0.9 (<1.2) APTT 19.4 L (22.0-30.0) sec Sodium 139 (137-145) mmol/L Potassium 3.9 (3.5-5.1) mmol/L Chloride 109 H (98-107) mmol/L Carbon Dioxide 22 (22-30) mmol/L Anion Gap 8 mmol/L BUN 21 H (7-17) mg/dL Creatinine 0.54 (0.52-1.04) mg/dL Est GFR (CKD-EPI)AfAm >90 (>60 ml/min/1.73 sqM) Est GFR (CKD-EPI)NonAf >90 (>60 ml/min/1.73 sqM) Glucose 98 (74-99) mg/dL Calcium 9.4 (8.4-10.2) mg/dL Magnesium 1.9 (1.6-2.3) mg/dL Total Bilirubin 0.5 (0.2-1.3) mg/dL AST 24 (14-36) U/L ALT 17 (4-34) U/L Alkaline Phosphatase 59 (38-126) U/L Total Protein 7.5 (6.3-8.2) g/dL Albumin 4.6 (3.5-5.0) g/dL Blood Type Confirm 11/25/23 Range/Units 17:47 WBC (3.8-10.6) k/uL RBC (3.80-5.40) m/uL Hgb (11.4-16.0) gm/dL Hct (34.0-46.0) % MCV (80.0-100.0) fL MCH (25.0-35.0) pg MCHC (31.0-37.0) g/dL RDW (11.5-15.5) % Plt Count (150-450) k/uL MPV Neutrophils % % Lymphocytes % % Monocytes % % Eosinophils % % Basophils % % Neutrophils # (1.3-7.7) k/uL Lymphocytes # (1.0-4.8) k/uL Monocytes # (0-1.0) k/uL Eosinophils # (0-0.7) k/uL Basophils # (0-0.2) k/uL PT (10.0-12.5) sec INR (<1.2) APTT (22.0-30.0) sec Sodium (137-145) mmol/L Potassium (3.5-5.1) mmol/L Chloride (98-107) mmol/L Carbon Dioxide (22-30) mmol/L Anion Gap mmol/L BUN (7-17) mg/dL Creatinine (0.52-1.04) mg/dL Est GFR (CKD-EPI)AfAm (>60 ml/min/1.73 sqM) Est GFR (CKD-EPI)NonAf (>60 ml/min/1.73 sqM) Glucose (74-99) mg/dL Calcium (8.4-10.2) mg/dL Magnesium (1.6-2.3) mg/dL Total Bilirubin (0.2-1.3) mg/dL AST (14-36) U/L ALT (4-34) U/L Alkaline Phosphatase (38-126) U/L Total Protein (6.3-8.2) g/dL Albumin (3.5-5.0) g/dL Blood Type Confirm O Positive Disposition Clinical Impression: Intertrochanteric fracture of left hip Disposition: ADMITTED IP TO THIS HOSP Condition: Stable Is patient prescribed a controlled substance at d/c from ED?: No Time of Disposition: 18:18
[2023-11-25] MEDS ORDERED: ACETAMINOPHEN TAB 325 MG TAB PO PRN (18:18)
[2023-11-25] MEDS ORDERED: NALOXONE 0.4 MG/ML 1 ML VIAL IV PRN (18:18)
[2023-11-25] MEDS: HYDROmorphone 1 MG/ML 1 ML SYRINGE IVP PRN (18:50)
[2023-11-25 18:52] LABS: INR 0.9 (<1.2); Prothrombin Time 10.5 sec (10.0-12.5)
[2023-11-25 19:05] LABS: Partial Thromboplastin Time 19.4 sec (22.0-30.0)
[2023-11-25] MEDS: HYDROmorphone 0.5 MG/0.5 ML SYRINGE IVP PRN (21:10)
--- NOTE | 2023-11-25 22:56 | XR ---
EXAMINATION TYPE: XR Hip Complete RT DATE OF EXAM: 11/25/2023 6:04 PM CLINICAL INDICATION:Female, 68 years old with history of fall; [facility] COMPARISON: None. TECHNIQUE: Frontal and cross table lateral views of the right hip were obtained. FINDINGS: Visualized right hemipelvis appears grossly intact. Mild degenerative change in the right SI joint an d pubic symphysis. Mild right hip arthropathy. No hip dislocation. There is an acute intertrochanteric fracture with mil d displacement. Mild soft tissue swelling suggested regional to the fracture, otherwise unremarkable without radiopaq ue foreign body seen. IMPRESSION: Acute intertrochanteric fracture of the proximal right femur with mild displacement.
--- NOTE | 2023-11-25 23:16 | XR ---
EXAM: XR chest 1V portable CLINICAL INDICATION:Female, 68 years old with history of fall; [facility] COMPARISON: None. TECHNIQUE: Chest single view. FINDINGS: Lines/tubes/devices: No indwelling lines. Multiple extrinsic densities over the chest. Cardiomediastinum: Cardiac silhouette appears mildly enlarged. Atherosclerotic calcifications of the aorta. Vasculature: There is central vascular congestion with enlargement of the leigha and cephalization of flow suggested. Lungs/pleura: Lungs appear hyperinflated with coarsening of the interstitium, suggesting possibility of background COPD. Mild bilateral hilar prominence likely vascular. There seems to be vascular congestion. No foca l consolidation, sizable effusion, or evidence of pneumothorax. Bones/soft tissues: Bony thorax appears grossly intact as seen. Mild degenerative changes of the dorsal spine with mild t o moderate apex right scoliosis. Regional soft tissues appear unremarkable. IMPRESSION: 1. Suspect chronic changes which may be COPD related. 2. Mild cardiomegaly with suspected mild vascular congestion. Correlate for mild CHF.
--- NOTE | 2023-11-26 08:41 | P.HPOR ---
History of Present Illness H&P Date: 11/26/23 Chief Complaint: Right hip pain, fall The patient is a previously healthy 68 year old female that presented to the emergency department at [facility] yesterday after a slip and fall at home. She states she slipped on a wet floor and fell directly on her right hip. No other injuries and she did not hit her head. She was unable to bear weight and presented to the ER. Upon x-ray in the ER, a fracture was found in her right hip. No new complaints this morning. Review of Systems Constitutional: Denies chills, Denies fatigue, Denies fever Cardiovascular: Denies chest pain, Denies shortness of breath Respiratory: Denies cough Gastrointestinal: Denies diarrhea, Denies nausea, Denies vomiting Musculoskeletal: right: hip pain, hip stiffness, hip swelling Past Medical History Past Medical History: No Reported History History of Any Multi-Drug Resistant Organisms: None Reported Past Surgical History: Orthopedic Surgery Additional Past Surgical History / Comment(s): Ovary removed Past Anesthesia/Blood Transfusion Reactions: No Reported Reaction Past Psychological History: No Psychological Hx Reported Smoking Status: Never smoker Past Alcohol Use History: Occasional Past Drug Use History: None Reported - Past Family History Mother Family Medical History: COPD, Rheumatoid Arthritis (RA) Medications and Allergies Home Medications Medication Instructions Recorded Confirmed Type Ascorbic Acid [Vitamin C] 500 mg PO DAILY 11/29/19 11/25/23 History Glucosam/Ryan-Msm1/C/Connor/Bosw 1 tab PO DAILY 11/29/19 11/25/23 History [Glucosamine-Chondroitin Tablet] Cholecalciferol [Vitamin D3 (25 25 mcg PO DAILY 11/25/23 11/25/23 History Mcg = 1000 Iu)] Estradiol Cream [Estrace Cream 1 gm VAGINAL Q3D PRN 11/25/23 11/25/23 History 0.01%] Ezetimibe [Zetia] 10 mg PO BURGESS 11/25/23 11/25/23 History Multivitamins, Thera [Multivitamin 1 tab PO DAILY 11/25/23 11/25/23 History (formulary)] Vitamin E (Dl,Tocopheryl Acet) 400 unit PO DAILY 11/25/23 11/25/23 History [Vitamin E (400 Iu = 180 mg)] Allergies Allergy/AdvReac Type Severity Reaction Status Date / Time No Known Allergies Allergy Verified 11/25/23 19:14 Physical Examination The patient is an 68 year-old female in no acute distress. She is alert and oriented 3. The patient's head is normocephalic, atraumatic. No pain upon palpation to the cervical spine, no step-offs noted. Exam of the bilateral upper extremities reveal no obvious deformities or wounds. Exam of the left lower extremity reveals no deformity or wounds. No pain upon range of motion of the left leg. Exam of the right lower extremity reveals severe guarding to the right hip. There is pain to palpation to the lateral hip. There is pain to external and internal rotation of the right hip. Calf is soft and nontender. She is able to wiggle her toes. Circulatory status is intact. Results X-ray of the right hip dated 11/25/2023 reveals acute displaced intertrochanteric fracture of the right proximal femur. - Labs Labs: Abnormal Lab Results - Last 24 Hours (Table) 11/25/23 11/25/23 11/25/23 Range/Units 17:47 17:47 17:47 RBC 3.79 L (3.80-5.40) m/uL APTT 19.4 L (22.0-30.0) sec Chloride 109 H (98-107) mmol/L BUN 21 H (7-17) mg/dL H & H 11/25/23 Range/Units 17:47 Hgb 12.8 (11.4-16.0) gm/dL Hct 37.5 (34.0-46.0) % Coagulation 11/25/23 Range/Units 17:47 INR 0.9 (<1.2) Result Diagrams: 11/25/23 17:47 11/25/23 17:47 Assessment and Plan (1) Fall Current Visit: Yes Status: Acute Code(s): W19.XXXA - UNSPECIFIED FALL, INITIAL ENCOUNTER SNOMED Code(s): 4317449 (2) Intertrochanteric fracture of left hip Current Visit: Yes Status: Acute Code(s): S72.142A - DISPLACED INTERTROCHANTERIC FRACTURE OF LEFT FEMUR, INIT SNOMED Code(s): 410232899 Plan: The clinical and x-ray findings were discussed with the patient. The case was discussed with Dr. Lenz. Treatment options were discussed and surgical intervention is recommended. We discussed the surgical plan as well as the expected postoperative course. Risks and benefits were reviewed including (but not limited to) the risks of infection, bleeding, blood clots, delayed or nonun ion, anesthesia-related complications and possible need for additional surgery. Questions were invited and answered. The patient expressed understanding and wishes to proceed with surgery. The patient will be kept on bedrest. Continue PRN pain management. She will remain NPO. She is scheduled for a closed reduction with insertion of cephalomedullary nail of the right hip later this afternoon. We will await pre-op clearance from internal medicine.
[2023-11-26] MEDS: ONDANSETRON 4 MG/2 ML VIAL IVP ONE (15:54)
[2023-11-26] MEDS: DEXAMETHASONE SOD PHOSPHATE 4 MG/ML 1 ML VIAL IVP ONE (15:54)
[2023-11-26] MEDS: IV FLUID CONTINUATION 600 ML IV ONE (16:04)
[2023-11-26] MEDS: HYDROmorphone 0.5 MG/0.5 ML SYRINGE IVP ONE ×2 (16:04→18:11)
[2023-11-26] MEDS ORDERED: ePHEDrine 50 MG/ML 1 ML VIAL ONE (16:20)
[2023-11-26] MEDS ORDERED: PROPOFOL 10 MG/ML 20 ML VIAL IV ONE (16:20)
[2023-11-26] MEDS ORDERED: SUCCINYLCHOLINE CHLORIDE 200 MG/10 ML VIAL IV ONE (16:20)
[2023-11-26] MEDS ORDERED: MIDAZOLAM 2 MG/2 ML VIAL ONE (16:20)
[2023-11-26] MEDS ORDERED: LIDOCAINE 1% INJ 10MG/ML (20 ML MDV) ONE (16:20)
[2023-11-26] MEDS ORDERED: fentaNYL (PF) 50 MCG/ML 2 ML AMP ONE (16:20)
[2023-11-26] MEDS: SODIUM CHLORIDE 0.9% 100 ML with ceFAZolin 2,000 MG IV ONE (16:26)
[2023-11-26] MEDS: ceFAZolin 1,000 MG in SODIUM CHLORIDE 0.9% 1,000 ML IRRIGATION ONE (16:49)
[2023-11-26] MEDS: LACTATED RINGERS 1,000 ML IV ONE (17:22)
[2023-11-26] MEDS ORDERED: MAGNESIUM HYDROXIDE 2,400 MG/30 ML CUP PO PRN (17:46)
[2023-11-26] MEDS ORDERED: NALOXONE 0.4 MG/ML 1 ML VIAL IV PRN (17:46)
--- NOTE | 2023-11-26 17:46 | P.OP ---
Date of Procedure: 11/26/23 Preoperative Diagnosis: Right intertrochanteric hip fracture, osteoporosis, and rheumatoid arthritis Postoperative Diagnosis: Same Procedure(s) Performed: Operative fixation of right intertrochanteric hip fracture with short intramedullary hip screw Anesthesia: DEYVIA Surgeon: Michael Zheng Estimated Blood Loss (ml): 100 IV fluids (ml): 800 Pathology: none sent Condition: stable Disposition: PACU Indications for Procedure: I met with the patient and their family preoperatively to discuss their injury and treatment options. They have an extra-capsular, intertrochanteric hip fracture and my recommendation was to stabilize the fracture with an in tramedullary hip screw to facilitate early mobilization. We discussed the potential risks and complications of this surgical procedure including but certainly not limited to risks from anesthesia, superficial infection, deep infection, fracture nonunion, fracture malunion, hardware failure including broken hardware, varus collapse with lag screw cut out of the femoral head, progression of hip arthritis, limb length discrepancy, symptomatic hardware, need for further surgery including hardware removal and conversion to arthroplasty, DVT, PE, acute coronary event, pressure ulcers, urinary tract infection, failure to thrive, an inability to regain preinjury level of function, and possibly . The patient and their family understand these potential complications and also awknowledge that other less common complications are possible. They provided both their verbal and written consent to go forward with operative fixation of their hip fracture with an intramedullary hip screw. Description of Procedure: The patient was identified in preoperative holding and the correct operative extremity was marked with my initials. I reviewed the consent form with the p atient and their family and all of their questions were answered. The patient was then brought back to the operating room by anesthesia. Anesthesia, preoperative antibiotics, and tranexamic acid were given by the anesthesia team while on the [facility]. Both ankles were padded with webril and boots for the [place] table were applied. The patient was then carefully transferred onto the [place] table. A perineal post was immediately placed. The contralateral arm was secured on a well-padded arm polk. The ipsilateral arm was draped across the chest and secured with a pillow, foam, and paper tape to allow access to the proximal femur. Nonsterile drapes were applied to the operative extremity. The height of the table was elevated and the contralateral extremity was dropped towards the floor to facilitate imaging. A timeout was performed identifying the correct patient, operative extremity, and procedure. Fluoroscopy was brought in to assess the fracture. A provisional reduction was performed using longitudinal traction, adduction, and internal rotation. An AP and lateral view were obtained to assess the reduction. The operative extremity was then prepped and draped in the standard sterile fashion. A straight incision was made at the tip of the greater trochanter and extended proximally for 3 cm. Skin and subcutaneous tissues were incised sharply. The underlying fascia was incised in line with the skin incision. An awl was placed just medial to the tip of the greater trochanter on the AP view and colinear with the canal on the lateral view. A 3.2 mm guide pin was then advanced into the proximal femur. The position of the guidepin was verified with fluoroscopy. An opening reamer and soft tissue cannula were placed over the guidepin and used to open the proximal femur to the level of the lesser trochanter. The 3.2 mm guide pin and opening reamer were removed. A short gamma nail was dispensed, hooked up to the targeting arm and I verified that the trochar through the targeting arm lined up with the slots on the nail. The nail was then impacted into the proximal femur until the appropriate depth had been reached. A small stab incision was made over the lateral aspect of the femur using the targeting arm as a reference for the lag screw. Incision was carried down to the skin and fascia down to the lateral cortex of the femur. The trocar was then placed up to the lateral cortex of the femur and a guidepin was placed in the low center position on the AP view and centered in the femoral head on the lateral view. Once the position of the guidewire was verified, we reamed to appropriate depth and placed a lag screw over the guidewire and into the femoral head. The position of the lag screw was assessed with fluoroscopy. The guidewire was then removed from the femoral head. The set screw was placed proximally, brought fully down and then released a quarter turn to allow compression. A final stab incision was made over the lateral femur at the site of the distal interlocking screw, again using the targeting arm as a reference. The trocar and sleeve were placed to the lateral cortex of the femur. We then drilled and placed a distal interlocking screw. Final fluoroscopic images were taken showing excellent reduction of the fracture and appropriate position of the implants. All wounds were thoroughly irrigated and closed in layers. Sterile dressings were applied. The drapes were taken down, the patient was transferred off the [place] table, and was brought to recovery having tolerated the procedure well. PLAN: The patient can weight-bear as tolerated on their operative extremity. 2 doses of postoperative antibiotics. DVT prophylaxis with aspirin 81 mg twice a day starting the day of surgery. Dressing change on postoperative day #2. Appreciate Internal Medical assistance with perioperative medical management. Discharge planning in process.
--- NOTE | 2023-11-26 18:07 | XR ---
Right hip. HISTORY: Intraoperative imaging for open reduction internal fixation of a fracture of the right femor al neck. COMPARISON: None TECHNIQUE: 9 spot views and 1 minute and 32 seconds of fluoroscopy was obtained demonstrating fixatio n of a right femoral neck fracture. FINDINGS: Following placement of an intramedullary moraima in transfemoral neck screw there is near anatomic alignm ent there is no hip dislocation. IMPRESSION: Fluoroscopy and intraoperative spot films demonstrating satisfactory open reduction inter nal fixation of a right femoral neck fracture as described above.
[2023-11-26] MEDS: SODIUM CHLORIDE 0.9% 1,000 ML IV SCH (19:47)
[2023-11-26 20:38] LABS: Basophils % (A) 0 %; Eosinophils % (A) 0 %; HCT 35.7 % (34.0-46.0); HGB 11.7 gm/dL (11.4-16.0); Lymphocytes # (A) 0.5 k/uL (1.0-4.8); Lymphocytes % (A) 6 %; MCH 33.7 pg (25.0-35.0); MCHC 32.6 g/dL (31.0-37.0); MCV 103.1 fL (80.0-100.0); Macrocytosis Slight; Mean Platelet Volume 8.6; Monocytes # (A) 0.2 k/uL (0-1.0); Monocytes % (A) 2 %; Neutrophils # (A) 7.6 k/uL (1.3-7.7); Neutrophils % (A) 91 %; Platelet Count 165 k/uL (150-450); RBC 3.46 m/uL (3.80-5.40); RDW 12.4 % (11.5-15.5); WBC 8.4 k/uL (3.8-10.6)
[2023-11-26] MEDS: SENNOSIDES-DOCUSATE SODIUM 1 EACH TAB PO SCH (22:19)
[2023-11-26] MEDS: ASPIRIN 81 MG PO SCH (22:19)
[2023-11-26] MEDS: HYDROcodone/APAP 5-325MG 1 EACH TAB PO PRN (22:21)
--- NOTE | 2023-11-26 22:25 | P.CONS ---
History of Present Illness - Reason for Consult Consult date: 11/26/23 Medical management - Chief Complaint Right hip pain - History of Present Illness Patient is a 68-year-old female with history of appendectomy and ovary removed several years ago presents to ER status post fall. Patient slipped on water in the Kitchen and landed on her right hip and has been having severe pain since then. Patient was transported to the hospital by EMS and noted to have shorten ing and external rotation of the right lower extremity. Patient otherwise denies any head injury or trauma. Denies any medical problems. Currently not on any blood thinners. Denies any recent illnesses. No nausea vomiting abdominal pain or diarrhea. No chest pain or shortness of breath. EKG showed sinus rhythm with sinus arrhythmia Hip x-ray showed acute intertrochanteric fracture of the proximal right femur with mild displacement. Chest x-ray showed suspected chronic changes which may be COPD related. Mild cardiomegaly with suspected mild vascular congestion. Correlate for mild CHF. Vitals blood pressure 116/62 pulse 57 respiration 16 and pulse ox 98% on room air. Laboratory data showed WBC 7.4 hemoglobin 12.8 and platelets 200, sodium 139 potassium 3.9 chloride 109 bicarb is 22 BUN 21 and creatinine 0.54 and blood sugar 98. Liver enzymes are not elevated. Review of Systems Constitutional: Patient denies any fever or chills . No generalized weakness or weight loss. Abdomen: Patient denied nausea vomiting and diarrhea and abdominal pain. Cardiovascular: Patient denies any chest pain or short of breath no palpitations. Respiratory: patient denied any cough is from production. No shortness of breath Neurologic: Patient denied any numbness or tingling headache. Musculoskeletal: Patient denies any complaints of joint swelling or deformity. Right hip pain Skin: Negative Psychiatric: Negative Endocrine: No heat or cold intolerance. No recent weight gain. Genitourinary: No dysuria or hematuria. All other 14 point ROS negative except the above Past Medical History Past Medical History: No Reported History History of Any Multi-Drug Resistant Organisms: None Reported Past Surgical History: Orthopedic Surgery Additional Past Surgical History / Comment(s): Ovary removed Past Anesthesia/Blood Transfusion Reactions: No Reported Reaction Past Psychological History: No Psychological Hx Reported Smoking Status: Never smoker Past Alcohol Use History: Occasional Past Drug Use History: None Reported - Past Family History Mother Family Medical History: COPD, Rheumatoid Arthritis (RA) Medications and Allergies Home Medications Medication Instructions Recorded Confirmed Type Ascorbic Acid [Vitamin C] 500 mg PO DAILY 11/29/19 11/25/23 History Glucosam/Ryan-Msm1/C/Connor/Bosw 1 tab PO DAILY 11/29/19 11/25/23 History [Glucosamine-Chondroitin Tablet] Cholecalciferol [Vitamin D3 (25 25 mcg PO DAILY 11/25/23 11/25/23 History Mcg = 1000 Iu)] Estradiol Cream [Estrace Cream 1 gm VAGINAL Q3D PRN 11/25/23 11/25/23 History 0.01%] Ezetimibe [Zetia] 10 mg PO BURGESS 11/25/23 11/25/23 History Multivitamins, Thera [Multivitamin 1 tab PO DAILY 11/25/23 11/25/23 History (formulary)] Vitamin E (Dl,Tocopheryl Acet) 400 unit PO DAILY 11/25/23 11/25/23 History [Vitamin E (400 Iu = 180 mg)] Allergies Allergy/AdvReac Type Severity Reaction Status Date / Time No Known Allergies Allergy Verified 11/25/23 19:14 Physical Exam Vitals: Vital Signs Temp Pulse Pulse Pulse Resp BP BP 11/26/23 07:24 98.6 F 63 18 117/61 11/26/23 01:26 98.8 F 63 15 121/64 11/25/23 21:47 98.0 F 57 L 16 116/62 11/25/23 21:00 56 L 14 110/60 11/25/23 20:00 68 16 111/52 11/25/23 19:16 64 18 111/52 11/25/23 18:44 75 18 122/77 11/25/23 17:42 98 F 72 20 Pulse Ox 11/26/23 07:24 96 11/26/23 01:26 97 11/25/23 21:47 98 11/25/23 21:00 98 11/25/23 20:00 98 11/25/23 19:16 97 11/25/23 18:44 96 11/25/23 17:42 100 Intake and Output 11/25/23 11/26/23 11/26/23 22:59 06:59 14:59 Output Total 300 Balance -300 Output: Urine 300 Other: Voiding Method External Catheter Weight 50.349 kg PHYSICAL EXAMINATION: Patient is lying in the bed comfortably, no acute distress, awake alert and oriented.. HEENT: Normocephalic. Neck is supple. Pupils reactive. Nostrils clear. Oral cavity is moist. Neck reveals no JVD, carotid bruits, or thyromegaly. CHEST EXAMINATION: Trachea is central. Symmetrical expansion. Lung sanchez clear to auscultation and percussion. CARDIAC: Normal S1, S2 with no gallops. No murmurs ABDOMEN: Soft. Bowel sounds normal. No organomegaly. No abdominal bruits. Extremities: reveal no edema. No clubbing or cyanosis Neurologically awake, alert, oriented x3 with well-coordinated movements. No focal deficits noted Skin: No rash or skin lesions. Psychiatric: Coperative. Nonsuicidal Musculoskeletal: No joint swelling or deformity. Right lower extremity decreased range of motion at hip joint Results CBC & Chem 7: 11/26/23 20:07 11/25/23 17:47 Labs: Abnormal Lab Results - Last 24 Hours (Table) 11/25/23 11/25/23 11/25/23 Range/Units 17:47 17:47 17:47 RBC 3.79 L (3.80-5.40) m/uL APTT 19.4 L (22.0-30.0) sec Chloride 109 H (98-107) mmol/L BUN 21 H (7-17) mg/dL Assessment and Plan Assessment: Status post mechanical fall Acute intertrochanteric fracture of the proximal right femur with mild displacement Mild cardiomegaly and vascular congestion on chest x-ray History of appendectomy and ovarian removal DVT prophylaxis as per primary team. Plan: Patient will be continued on pain management and encourage incentive spirometry. Patient denied any complaints of chest pain or shortness of breath. No leg swelling. No exertional dyspnea. No prior history of CKD or history of CVA. Patient is at low cardiac risk for orthopedic surgery. Will continue to follow and further recommendations based on the clinical course. Thank you kindly for your consult.
[2023-11-26] MEDS: ONDANSETRON 4 MG/2 ML VIAL IVP PRN (23:43)
[2023-11-27] MEDS: MULTIVITAMINS, THERA 1 EACH TAB PO SCH (08:13)
[2023-11-27] MEDS: CHOLECALCIFEROL 25 MCG (1000 IU) TABLET PO SCH (08:13)
[2023-11-27] MEDS: HYDROcodone/APAP 10-325MG 1 EACH TAB PO PRN (08:14)
--- NOTE | 2023-11-27 10:28 | P.PN ---
Subjective Progress Note Date: 11/27/23 Principal diagnosis: Status post right hip gamma nail This is a 68 year-old female post right hip gamma nail. This is post-op day 1. The patient was evaluated at the bedside this morning. The patient denies nausea, vomiting, abdominal pain, chest pain, or shortness of breath this morning. She states her pain is controlled at this time. The patient has not been up with physical therapy yet this morning but has ambulated to the bathroom. Objective - Vital Signs Vital signs: Vital Signs Temp 98.6 F 11/27/23 07:09 Pulse 66 11/27/23 07:09 Resp 17 11/27/23 07:09 BP 106/58 11/27/23 07:09 Pulse Ox 95 11/27/23 07:09 FiO2 Intake & Output 11/26/23 11/27/23 11/27/23 18:59 06:59 18:59 Intake Total 801 Output Total 625 400 300 Balance 176 -400 -300 Weight 50.349 kg Intake: IV 801 Output: Urine 525 400 300 Estimated Blood Loss 100 Other: Voiding Method External Catheter # Voids 1 - Exam The patient does not appear in acute distress. Alert and orientated x3. Dressing is clean dry and intact. Incision appears fine with no erythema or active drainage. Calf is soft and nontender. Good foot and ankle motion without difficulty. Sensation and circulatory status is intact. - Labs CBC & Chem 7: 11/26/23 20:07 11/25/23 17:47 Labs: Abnormal Lab Results - Last 24 Hours (Table) 11/26/23 11/27/23 Range/Units 20:07 06:19 RBC 3.46 L (3.80-5.40) m/uL MCV 103.1 H (80.0-100.0) fL Lymphocytes # 0.5 L (1.0-4.8) k/uL NT-Pro-B Natriuret Pep 1218 H (0-125) pg/mL Assessment and Plan (1) Fall Current Visit: Yes Status: Acute Code(s): W19.XXXA - UNSPECIFIED FALL, INITIAL ENCOUNTER SNOMED Code(s): 0205360 (2) Intertrochanteric fracture of left hip Current Visit: Yes Status: Acute Code(s): S72.142A - DISPLACED INTERTROCHANTERIC FRACTURE OF LEFT FEMUR, INIT SNOMED Code(s): 341187994 Plan: 1. Continue pain control 2. Anticoagulation with Aspirin 3. Continue physical therapy and ambulation 4. Anticipate discharge home with homecare tomorrow.
[2023-11-27] MEDS: hydrOXYzine pamoate 25 MG CAP PO PRN (13:35)
--- NOTE | 2023-11-27 14:57 | P.PN ---
Subjective Progress Note Date: 11/27/23 - Reason for Consult Consult date: 11/26/23 Medical management - Chief Complaint Right hip pain - History of Present Illness Patient is a 68-year-old female with history of appendectomy and ovary removed several years ago presents to ER status post fall. Patient slipped on water in the Kitchen and landed on her right hip and has been having severe pain since then. Patient was transported to the hospital by EMS and noted to have shortening and external rotation of the right lower extremity. Patient otherwis e denies any head injury or trauma. Denies any medical problems. Currently not on any blood thinners. Denies any recent illnesses. No nausea vomiting abdominal pain or diarrhea. No chest pain or shortness of breath. EKG showed sinus rhythm with sinus arrhythmia Hip x-ray showed acute intertrochanteric fracture of the proximal right femur with mild displacement. Chest x-ray showed suspected chronic changes which may be COPD related. Mild cardiomegaly with suspected mild vascular congestion. Correlate for mild CHF. Vitals blood pressure 116/62 pulse 57 respiration 16 and pulse ox 98% on room air. Laboratory data showed WBC 7.4 hemoglobin 12.8 and platelets 200, sodium 139 potassium 3.9 chloride 109 bicarb is 22 BUN 21 and creatinine 0.54 and blood sugar 98. Liver enzymes are not elevated. 11/27/2023 Patient is seen in follow-up today status post surgical intervention of the right hip with orthopedics yesterday. Patient currently sitting up in the chair reports to feeling well and has worked with physical therapy and doing well plans for discharge home tomorrow. Patient underwent a chest x-ray which showed some mild cardiomegaly with suspected mild vascular congestion correlate for CHF. BNP was mildly elevated at 1218 and will discontinue IV fluids. Patient is eating and drinking with no difficulties. Patient reports to passing gas with no bowel movement as of yet. Will also initiate incentive spirometer and continue to encourage the patient to use at least 10 times every hour while awake. Plan is for returning home with family once discharged. Patient is afebrile with no reported chest pain or shortness of breath. Patient is 95% on room air. Patient denies any nausea or vomiting and has been tolerating diet. Continue stool softeners and pain medication management per orthopedics Review of systems: Constitutional: No reports of fatigue, fever, or chills Cardiovascular: No reports of chest pain or palpitations Respiratory: No reports of shortness of breath or cough GI: No reports of nausea, vomiting, or diarrhea, reports passing gas with no bowel movement as of yet : No reports of dysuria or retention Neurovascular: No reports of weakness or numbness, reports some right hip discomfort although managed on current regimen All medications have been reviewed PHYSICAL EXAMINATION: Patient is sitting up in the chair, no acute distress, awake alert and oriented.. Well-developed, thin built HEENT: Normocephalic. Neck is supple. Pupils reactive. Nostrils clear. Oral cavity is moist. Neck reveals no JVD, carotid bruits, or thyromegaly. CHEST EXAMINATION: Trachea is central. Symmetrical expansion. Lung sanchez clear to auscultation and percussion. CARDIAC: Normal S1, S2 with no gallops. No murmurs ABDOMEN: Soft. Bowel sounds normal. No organomegaly. No abdominal bruits. Extremities: reveal no edema. No clubbing or cyanosis. Right hip surgical dressing is dry and intact with no significant swelling and no redness noted Neurologically awake, alert, oriented x3 with well-coordinated movements. No focal deficits noted, diffusely weak Skin: No rash or skin lesions. Psychiatric: Cooperative. Non-suicidal Musculoskeletal: No joint swelling or deformity. Right lower extremity decreased range of motion at hip joint Assessment: Status post mechanical fall Acute intertrochanteric fracture of the proximal right femur with mild displacement, status post right hip gamma nail Mild cardiomegaly and vascular congestion on chest x-ray, 95% on room air. Patient to follow-up with her cardiology outpatient History of appendectomy and ovarian removal DVT prophylaxis as per primary team. GI prophylaxis Full code Plan: Patient will be continued on pain management and bowel regimen per orthopedics Patient did have a chest x-ray showing some mild vascular congestion and BNP was 1218 will discontinue fluids with concerns of possible mild volume overload. Patient is maintaining oxygen saturations at 95% on room air. Will initiate incentive spirometer and continue to encourage using at least 10 times every hour while awake Patient has been evaluated by physical therapy and plans on returning home and has support at the home. Patient to be monitored overnight with pain management with discussion of discharge planning in 24 hours. Will continue to follow with orthopedics during hospitalization. Thank you kindly for this consultation. Patient has been instructed to follow-up with her primary care provider outpatient. The impression and plan of care has been dictated by Megan Reyes, Nurse Practitioner as directed. Dr. Georgina MD I have performed a history and examination and MDM of this patient, discussed the same with the dictator, and agree with the dictator's assessment and plan as written ,documented as a scribe. Based on total visit time, I have performed more than 50% of the visit. Objective - Vital Signs Vital signs: Vital Signs Temp 98.6 F 11/27/23 07:09 Pulse 66 11/27/23 07:09 Resp 17 11/27/23 07:09 BP 106/58 11/27/23 07:09 Pulse Ox 95 11/27/23 07:09 FiO2 Intake & Output 11/26/23 11/27/23 11/27/23 18:59 06:59 18:59 Intake Total 801 Output Total 625 400 300 Balance 176 -400 -300 Weight 50.349 kg Intake: IV 801 Output: Urine 525 400 300 Estimated Blood Loss 100 Other: Voiding Method External Catheter # Voids 1 - Labs CBC & Chem 7: 11/26/23 20:07 11/25/23 17:47 Labs: Abnormal Lab Results - Last 24 Hours (Table) 11/26/23 11/27/23 Range/Units 20:07 06:19 RBC 3.46 L (3.80-5.40) m/uL MCV 103.1 H (80.0-100.0) fL Lymphocytes # 0.5 L (1.0-4.8) k/uL NT-Pro-B Natriuret Pep 1218 H (0-125) pg/mL
[2023-11-28 08:10] VITALS: BP 106/49; PULSE 67; RESP 17; TEMP 98.5
--- NOTE | 2023-11-28 11:07 | P.DS ---
Providers Date of admission: 11/25/23 18:18 Expected date of discharge: 11/28/23 Attending physician: Sheridan Lenz DO Consults: 11/25/23 18:18 Consult Physician Routine Consulting Provider: Kiara Chacon Consult Reason/Comments: Surgical clearance for right hip fracture Do you want consulting provider notified?: Yes Primary care physician: Physician Nonstaff - Discharge Diagnosis(es) (1) Fall Current Visit: Yes Status: Acute (2) Intertrochanteric fracture of left hip Current Visit: Yes Status: Acute (3) Status post hip surgery Current Visit: Yes Status: Acute Hospital Course: This is a 68 year old female who presented to the hospital post fall at home and sustained a right intertrochanteric hip fracture. The patient was cleared by medicine for surgery. The patient underwent a right hip closed reduction with gamma nail on 11/26/[address] Zheng. The procedure was performed without complication or sequelae. The patient is doing well postoperatively. Labs and vital signs are stable on the day of discharge. On the day of discharge the patient's hip incision is healing well. There is minimal erythema. There is no drainage noted at this time. There is minimal soft tissue swelling to the hip and thigh. The patient has full foot and ankle motion without difficulty or pain. Neurovascular status to the right lower extremity is intact. The patient is discharged to home with homecare b in good condition. Pertinent Studies: Laboratory Tests 11/26/23 11/27/23 20:07 06:19 WBC 8.4 RBC 3.46 L Hgb 11.7 Hct 35.7 MCV 103.1 H Lymphocytes # 0.5 L Monocytes # 0.2 NT-Pro-B Natriuret Pep 1218 H Patient Condition at Discharge: Stable Plan - Discharge Summary Discharge Rx Participant: Yes New Discharge Prescriptions: New Aspirin 81 mg PO BID #60 tab Docusate [Colace] 100 mg PO BID #60 capsule HYDROcodone/APAP 10-325MG [Crouse 10-325] 1 tab PO Q4-6H PRN #30 tab PRN Reason: Pain hydrOXYzine pamoate [Vistaril] 25 mg PO TID PRN #30 cap PRN Reason: Pain Continue Glucosam/Ryan-Msm1/C/Connor/Bosw [Glucosamine-Chondroitin Tablet] 1 tab PO DAILY Ascorbic Acid [Vitamin C] 500 mg PO DAILY Vitamin E (Dl,Tocopheryl Acet) [Vitamin E (400 Iu = 180 mg)] 400 unit PO DAILY Multivitamins, Thera [Multivitamin (formulary)] 1 tab PO DAILY Cholecalciferol [Vitamin D3 (25 Mcg = 1000 Iu)] 25 mcg PO DAILY Ezetimibe [Zetia] 10 mg PO BURGESS Estradiol Cream [Estrace Cream 0.01%] 1 gm VAGINAL Q3D PRN PRN Reason: dryness Discharge Medication List Ascorbic Acid [Vitamin C] 500 mg PO DAILY 11/29/19 [History] Glucosam/Ryan-Msm1/C/Connor/Bosw [Glucosamine-Chondroitin Tablet] 1 tab PO DAILY 11/29/19 [History] Cholecalciferol [Vitamin D3 (25 Mcg = 1000 Iu)] 25 mcg PO DAILY 11/25/23 [ History] Estradiol Cream [Estrace Cream 0.01%] 1 gm VAGINAL Q3D PRN 11/25/23 [History] Ezetimibe [Zetia] 10 mg PO BURGESS 11/25/23 [History] Multivitamins, Thera [Multivitamin (formulary)] 1 tab PO DAILY 11/25/23 [History] Vitamin E (Dl,Tocopheryl Acet) [Vitamin E (400 Iu = 180 mg)] 400 unit PO DAILY 11/25/23 [History] Aspirin 81 mg PO BID #60 tab 11/28/23 [Rx] Docusate [Colace] 100 mg PO BID #60 capsule 11/28/23 [Rx] HYDROcodone/APAP 10-325MG [Crouse 10-325] 1 tab PO Q4-6H PRN #30 tab 11/28/23 [Rx] hydrOXYzine pamoate [Vistaril] 25 mg PO TID PRN #30 cap 11/28/23 [Rx] Follow up Appointment(s)/Referral(s): Nonstaff,Physician [Primary Care Provider] - 1-2 days [facility] Visiting Nurse, [NON-STAFF] - 1-2 Days ([facility] will call you to schedule your in home nursing, physical therapy, and occupational therapy visits. ) Michael Zheng MD [Medical Doctor] - 12/11/23 1:45 pm Activity/Diet/Wound Care/Special Instructions: Patient requires a bedside commode due to being room confined from a right intertrochanter fracture. Keep dressings in place for 7 days unless saturated. After 7 days, remove dressings and you do not have to cover incision. May shower with dressings on. PT - WBAT with walker and assistance. Use pain medication as directed. Continue Aspirin 81 mg twice daily for 4 weeks after surgery. Follow up with Dr. Zheng in 2 weeks. Call [facility] with questions or concerns. Discharge Disposition: HOME WITH HOME HEALTH SERVICES
--- NOTE | 2023-11-28 11:20 | FL ---
Fluoroscopy History: RT HIP IT NAILING RT HIP IT NAIL. FL TIME 1 MIN 32.5 SECONDS. DAP 2.9683. [address] JOHNSON.
--- NOTE | 2023-11-29 04:56 | P.PN ---
Subjective Progress Note Date: 11/28/23 - Reason for Consult Consult date: 11/26/23 Medical management - Chief Complaint Right hip pain - History of Present Illness Patient is a 68-year-old female with history of appendectomy and ovary removed several years ago presents to ER status post fall. Patient slipped on water in the Kitchen and landed on her right hip and has been having severe pain since then. Patient was transported to the hospital by EMS and noted to have shortening and external rotation of the right lower extremity. Patient otherwis e denies any head injury or trauma. Denies any medical problems. Currently not on any blood thinners. Denies any recent illnesses. No nausea vomiting abdominal pain or diarrhea. No chest pain or shortness of breath. EKG showed sinus rhythm with sinus arrhythmia Hip x-ray showed acute intertrochanteric fracture of the proximal right femur with mild displacement. Chest x-ray showed suspected chronic changes which may be COPD related. Mild cardiomegaly with suspected mild vascular congestion. Correlate for mild CHF. Vitals blood pressure 116/62 pulse 57 respiration 16 and pulse ox 98% on room air. Laboratory data showed WBC 7.4 hemoglobin 12.8 and platelets 200, sodium 139 potassium 3.9 chloride 109 bicarb is 22 BUN 21 and creatinine 0.54 and blood sugar 98. Liver enzymes are not elevated. 11/27/2023 Patient is seen in follow-up today status post surgical intervention of the right hip with orthopedics yesterday. Patient currently sitting up in the chair reports to feeling well and has worked with physical therapy and doing well plans for discharge home tomorrow. Patient underwent a chest x-ray which showed some mild cardiomegaly with suspected mild vascular congestion correlate for CHF. BNP was mildly elevated at 1218 and will discontinue IV fluids. Patient is eating and drinking with no difficulties. Patient reports to passing gas with no bowel movement as of yet. Will also initiate incentive spirometer and continue to encourage the patient to use at least 10 times every hour while awake. Plan is for returning home with family once discharged. Patient is afebrile with no reported chest pain or shortness of breath. Patient is 95% on room air. Patient denies any nausea or vomiting and has been tolerating diet. Continue stool softeners and pain medication management per orthopedics 11/28/2023 Patient is seen and evaluated in follow-up this morning reporting she is being discharged. Patient noted to have some mild right lower extremity swelling in the foot and have instructed the patient to use Link wraps from the toes up to the knees and elevate while at rest. Patient was able to work with physical therapy again and pain is better managed and would like to go home. Patient is afebrile denies chest pain or shortness of breath and is continued on room air. Patient has been instructed to bring incentive spirometer at home and continue using at least 10 times every hour while awake. Patient denies nausea or vomiting and has been tolerating diet. Review of systems: Constitutional: No reports of fatigue, fever, or chills Cardiovascular: No reports of chest pain or palpitations Respiratory: No reports of shortness of breath or cough GI: No reports of nausea, vomiting, or diarrhea, reports passing gas with no bowel movement as of yet : No reports of dysuria or retention Neurovascular: No reports of weakness or numbness, reports some right hip discomfort although managed on current regimen All medications have been reviewed PHYSICAL EXAMINATION: Patient is sitting up in the chair, no acute distress, awake alert and oriented.. Well-developed, thin built HEENT: Normocephalic. Neck is supple. Pupils reactive. Nostrils clear. Oral cavity is moist. Neck reveals no JVD, carotid bruits, or thyromegaly. CHEST EXAMINATION: Trachea is central. Symmetrical expansion. Lung sanchez clear to auscultation and percussion. CARDIAC: Normal S1, S2 with no gallops. No murmurs ABDOMEN: Soft. Bowel sounds normal. No organomegaly. No abdominal bruits. Extremities: Minimal pedal edema on the right, nonpitting. No clubbing or cyanosis. Right hip surgical dressing is dry and intact with no significant swelling and no redness noted Neurologically awake, alert, oriented x3 with well-coordinated movements. No focal deficits noted, diffusely weak Skin: No rash or skin lesions. Psychiatric: Cooperative. Non-suicidal Musculoskeletal: No joint swelling or deformity. Right lower extremity decreased range of motion at hip joint Assessment: Status post mechanical fall Acute intertrochanteric fracture of the proximal right femur with mild displacement, status post right hip gamma nail Mild cardiomegaly and vascular congestion on chest x-ray, 95% on room air. Patient to follow-up with her cardiology outpatient History of appendectomy and ovarian removal DVT prophylaxis as per primary team. GI prophylaxis Full code Plan: Patient will be continued on pain management and bowel regimen per orthopedics Patient did have a chest x-ray showing some mild vascular congestion and BNP was 1218 will discontinue fluids with concerns of possible mild volume overload. Patient is maintaining oxygen saturations at 95% on room air. Encouraged continued incentive spirometer use and instructed the patient to continue using while at home Patient has been evaluated by physical therapy and plans on returning home and has support at the home. Minimal swelling of the right lower extremity and have instructed the patient to elevate while at rest and may use Link wraps from the toes up to the knees to assist with swelling. Monitor salt intake. Patient is being discharged today. Patient is medically stable for discharge Will continue to follow with orthopedics during hospitalization. Thank you kindly for this consultation. Patient has been instructed to follow-up with her primary care provider outpatient. The impression and plan of care has been dictated by Megan Reyes, Nurse Practitioner as directed. Dr. Georgina MD I have performed a history and examination and MDM of this patient, discussed the same with the dictator, and agree with the dictator's assessment and plan as written ,documented as a scribe. Based on total visit time, I have performed more than 50% of the visit. Objective - Vital Signs Vital signs: Vital Signs Temp 98.5 F 11/28/23 07:13 Pulse 67 11/28/23 08:26 Resp 17 11/28/23 08:26 BP 106/49 11/28/23 07:13 Pulse Ox 95 11/28/23 07:13 FiO2 Intake & Output 11/27/23 11/28/23 11/28/23 18:59 06:59 18:59 Intake Total 540 Output Total 300 Balance -300 540 Intake: Oral 540 Output: Urine 300 Other: Voiding Method Toilet Toilet # Voids 1 4 - Labs CBC & Chem 7: 11/26/23 20:07 11/25/23 17:47
--- NOTE | 2023-11-30 18:45 | CDI ---
Documentation Clarification Form Date: 11/30/2023 06:25:26 PM From: Angela Ken Phone: Admit Date: 11/25/2023 06:18:00 PM Patient Name: Monique Redmond Visit Number: [id number] Discharge Date: 11/28/2023 12:08:00 PM ATTENTION: The Clinical Documentation Specialists (CDI) and [facility] Coding Staff appreciate your assistance in clarifying documentation. Please respond to the clarification below the line at the bottom and electronically sign. The CDI & [facility] Coding staff will review the response and follow-up if needed. Please note: Queries are made part of the Legal Health Record. If you have any questions, please contact the author of this message via ITS. Dr. Sheridan Lenz There is documentation of mildvolume overload and cardiomegaly per Progress Note 11/26. Additional clarification is requested. History/Risk Factors: 68yo F, Rt femur Fx, RA, COPD, osteoporosis Clinical Indicators: VS/Pulse OX: 97-100 BNP: 1218 Chest x ray: Suspect chronic changes whichmay beCOPDrelated. Mildcardiomegalywithsuspectedmild vascularcongestion. Correlate for mildCHF. Treatment: discontinue IV fluids; Mildcardiomegalyand vascularcongestiononchest x-ray, 95% on room air. Pt tofollow-upwith her cardiology OP. In your professional opinion, can you please clarify the acuity and type of CHF if known? [ ] Acute Systolic Heart Failure (reduced EF) [ ] Acute on Chronic Systolic Heart Failure (reduced EF) [ ] Acute Diastolic Heart Failure (preserved EF) [ ] Acute on Chronic Diastolic Heart Failure (preserved EF) [ ] Acute Systolic & Diastolic Heart Failure [ ] Acute on Chronic Heart Failure Systolic & Diastolic Heart Failure [ ] Other, please specify [ x ] Unable to determine (Template Last Revised: September 2020) MTDD
[2023-12-02] MEDS ORDERED: EZETIMIBE 10 MG TAB PO SCH (09:00)
== END 2023-11-28 12:08 | disposition home health service (06) | DRG 482 ==
LOC: EC 17:40 → 4SSUR 18:18
PROVIDERS: ADMIT Orthopaedic Surgery Hand Surgery; ATTEND Orthopaedic Surgery Hand Surgery
PROC: 0QS606Z Reposition Right Upper Femur with Intramedullary Internal Fixation Device, Open Approach (ICD-10-PCS; principal; 2023-11-26 10:50)
DX: S72.141A Displaced intertrochanteric fracture of right femur, initial encounter for closed fracture (principal); M06.9 Rheumatoid arthritis, unspecified; J44.9 Chronic obstructive pulmonary disease, unspecified; E87.70 Fluid overload, unspecified; I51.7 Cardiomegaly; M81.0 Age-related osteoporosis without current pathological fracture; W01.0XXA Fall on same level from slipping, tripping and stumbling without subsequent striking against object, initial encounter; Y92.000 Kitchen of unspecified non-institutional (private) residence as the place of occurrence of the external cause; Z79.899 Other long term (current) drug therapy
CPT/HCPCS: 36415; 71045; 73502; 80053; 83735; 83880; 85025; 85610; 85730; 86850; 86900; 86901; 93005; 96361; 96374; 96376; 99285